=== PATIENT | male | born 1975 | race Two or more races ===

== ENCOUNTER 2019-04-17 15:18 | Emergency (ER) | payer OTHER ==
[~2019-04-17] VITALS: Ht 167.6 cm; Wt 104.3 kg
[2019-04-17 16:58] VITALS: BP 136/81
[2019-04-17] MEDS ORDERED: KETOROLAC TROMETH 60MG/2ML VIAL IM ONE (17:30)
== END 2019-04-17 18:00 | disposition home or self-care (01) ==
LOC: ER 15:26
DX: K04.7 Periapical abscess without sinus (principal); F15.10 Other stimulant abuse, uncomplicated
CPT/HCPCS: 96372; 99283; J1885